=== PATIENT | female | born 1965 | race Caucasian/White ===

== ENCOUNTER → 2021-06-30 | Day surgery (SDC) | payer OTHER ==
[~2021-06-30] VITALS: Ht 167.6 cm; Wt 88.2 kg
[~2021-06-30] MED LIST: ARMOUR THYROID60 MG PO; ASPIRIN EC81 MG PO; ATENOLOL25 M1 PO; CLARITIN10 MG PO; PEPCID AC20 MG PO; VITAMIN C60 MG PO; VITAMIN D310 MC3 PO
[2021-06-30 08:27] LABS: ALBUMIN 3.7 g/dL (3.4-5.0); BILIRUBIN - TOTAL 0.7 mg/dL (0.2-1.0); CREATININE 0.69 mg/dL (0.51-0.95); GLOBULIN (CALCULATION) 3.4 g/dL; TOTAL PROTEIN 7.1 g/dL (6.4-8.2)
== END | disposition home or self-care (01) ==
LOC: FAS 05-19 08:45
PROVIDERS: Surgery
DX: Z12.11 Encounter for screening for malignant neoplasm of colon (principal); K31.9 Disease of stomach and duodenum, unspecified; K31.7 Polyp of stomach and duodenum; K29.70 Gastritis, unspecified, without bleeding; K44.9 Diaphragmatic hernia without obstruction or gangrene; R13.10 Dysphagia, unspecified; K21.9 Gastro-esophageal reflux disease without esophagitis; G89.29 Other chronic pain; I35.0 Nonrheumatic aortic (valve) stenosis; R01.1 Cardiac murmur, unspecified; I10 Essential (primary) hypertension; Z79.82 Long term (current) use of aspirin; Z79.899 Other long term (current) drug therapy; Z95.2 Presence of prosthetic heart valve
CPT/HCPCS: 43239; G0121; 36415; 80053; 82150; 83690; J2250; J2704; J7120